=== PATIENT | male | born 1985 | race African-American/Black ===

== ENCOUNTER 2022-08-15 15:51 | Emergency (ER) | payer OTHER ==
[~2022-08-15] VITALS: Ht 182.9 cm; Wt 90.0 kg
[2022-08-15] MEDS ORDERED: ACETAMINOPHEN 325MG TABLET PO STA (16:54)
[2022-08-15] MEDS ORDERED: TETRACAINE 0.5% OPHTH DROPS 4ML BOTHEYE ONE (17:00)
[2022-08-15] MEDS ORDERED: IBUP-2029 PO (17:32)
[2022-08-15 18:12] VITALS: BP 143/63
== END 2022-08-15 18:16 ==
LOC: ER 15:51
DX: T59.3X3A Toxic effect of lacrimogenic gas, assault, initial encounter (principal); H10.213 Acute toxic conjunctivitis, bilateral; R20.8 Other disturbances of skin sensation; Y35.213A Legal intervention involving injury by tear gas, suspect injured, initial encounter; Y93.89 Activity, other specified; Y92.89 Other specified places as the place of occurrence of the external cause; Z65.3 Problems related to other legal circumstances
CPT/HCPCS: 99283

== ENCOUNTER 2023-03-04 02:17 | Emergency (ER) | payer MEDICAID, OTHER ==
[~2023-03-04] VITALS: Ht 185.4 cm; Wt 114.0 kg
[~2023-03-04 02:17] MED LIST: IBUP-2029 PO
[2023-03-04 05:00] VITALS: BP 129/88
== END 2023-03-04 05:16 | disposition home or self-care (01) ==
LOC: ER 02:17
DX: Z00.00 Encounter for general adult medical examination without abnormal findings (principal)
CPT/HCPCS: 99281; Z7610

== ENCOUNTER 2023-06-30 16:15 | Emergency (ER) | payer MEDICAID ==
[~2023-06-30] VITALS: Ht 185.4 cm; Wt 104.3 kg
[2023-06-30 16:32] VITALS: O2SAT 98
[2023-06-30] MEDS ORDERED: CEPH500T MT (17:25)
[2023-06-30 18:01] VITALS: BP 118/89; PULSE 88; RESP 16; TEMP 98.6
== END 2023-06-30 18:02 | disposition home or self-care (01) ==
LOC: ER 16:15
DX: L73.9 Follicular disorder, unspecified (principal)
CPT/HCPCS: 99283

== ENCOUNTER 2024-02-02 10:25 | Emergency (ER) | payer MEDICAID ==
[~2024-02-02] VITALS: Ht 180.3 cm; Wt 104.0 kg
[~2024-02-02 10:25] MED LIST changes: +CEPH500T MT
[2024-02-02 10:43] VITALS: O2SAT 99
[2024-02-02] MEDS ORDERED: TETANUS, DIPHTHERIA, PERTUSSIS VAC/PF 0.5ML (>10YR OLD) IM ONE (11:00)
[2024-02-02] MEDS ORDERED: ACETAMINOPHEN 325MG TABLET PO ONE (11:00)
[2024-02-02] MEDS ORDERED: ACETAMINOPHEN 325MG TABLET PO SCH (13:00)
[2024-02-02] MEDS ORDERED: CEPH500C2 MT (13:06)
[2024-02-02] MEDS: TETANUS, DIPHTHERIA, PERTUSSIS VAC/PF 0.5ML (>10YR OLD) IM ONE (13:09)
[2024-02-02] MEDS: CEFAZOLIN 1000MG PREMIX 50 ML IV ONE (13:11)
[2024-02-02] MEDS: HYDROCODONE/ACETAMINOPHEN 5/325MG TABLET PO ONE (13:27)
[2024-02-02] MEDS ORDERED: IBUP-2028 MT (14:08)
[2024-02-02 14:27] VITALS: BP 132/89; PULSE 78; RESP 18; TEMP 98.7
== END 2024-02-02 14:00 | disposition home or self-care (01) ==
LOC: ER 10:25
DX: S92.001A Unspecified fracture of right calcaneus, initial encounter for closed fracture (principal); I10 Essential (primary) hypertension; W34.00XA Accidental discharge from unspecified firearms or gun, initial encounter; Y93.89 Activity, other specified; Y92.89 Other specified places as the place of occurrence of the external cause; Y99.8 Other external cause status
CPT/HCPCS: 73610; 73630; 90715; 29515; 90471; 96365; 99284; J0690; Z7610

== ENCOUNTER 2025-09-11 01:29 | Emergency (ER) | payer MEDICAID, OTHER ==
[~2025-09-11] VITALS: Ht 185.4 cm; Wt 103.0 kg
[~2025-09-11 01:29] MED LIST changes: +CEPH500C2 MT; +IBUP-1455 PO; +IBUP-2028 MT; -IBUP-2029 PO
[2025-09-11 02:17] VITALS: O2SAT 100
[2025-09-11] MEDS: KETOROLAC 15MG/ML VIAL IM ONE (03:37)
[2025-09-11] MEDS ORDERED: GRIS500T6 MT (03:53)
[2025-09-11 04:00] VITALS: BP 145/90; PULSE 62; RESP 21; TEMP 36.7; O2SAT 100
== END 2025-09-11 04:04 | disposition home or self-care (01) ==
LOC: ER 01:29
DX: B35.0 Tinea barbae and tinea capitis (principal); I10 Essential (primary) hypertension
CPT/HCPCS: 99283; 96372; J1885